=== PATIENT | female | born 1995 | race Caucasian/White ===

== ENCOUNTER 2017-02-04 19:46 | Emergency (ER) | payer OTHER ==
[~2017-02-04] VITALS: Ht 170.2 cm; Wt 62.8 kg
[~2017-02-04 19:46] MED LIST: AMOX125S2 PO; IBUP100S30 PO; NASAL SPRAY; PROM25TA5 PO; RANI50PED PO; Z.0.BCPILL PO; [UNRECOGNIZED DRUG - CODE]; [UNRECOGNIZED DRUG - CODE]; [UNRECOGNIZED DRUG - OTHER]
[2017-02-04 19:50] VITALS: BP 129/75; PULSE 77; RESP 18; TEMP 98.7; O2SAT 100
[2017-02-04 20:07] VITALS: BP 113/72; PULSE 90; RESP 15; TEMP 98.3; O2SAT 100
[2017-02-04] MEDS ORDERED: ZYRT10CA PO (20:18)
[2017-02-04] MEDS ORDERED: ETHI1TAB3 PO (20:18)
[2017-02-04] MEDS ORDERED: ZANT150T2 PO (20:18)
--- NOTE | 2017-02-04 20:46 | PD ---
HPI Chief Complaint: Chest Pain Time Seen by Provider: 20:30 Travel History International Travel<30 days: No Contact w/Intl Traveler<30days: No Traveled to known affect area: No History of Present Illness HPI This 21-year-old female is complaining of chest pain. She says that she's been having chest pain daily for some time. He says that in September she had a spell where her right arm went numb and she had trouble speaking. She went to an urgent care center and then followed up with a neurologist and was told that she had had a TIA. Since having a TIA having substernal chest pain every day. She says she generally gets at around 3:00 in the last symptoms she goes to bed. When she wakes up in the morning she was okay until about 3:00. The neurologist have referred her to a telephone directory deliverer and she is seeing Dr. Montague. She had a event monitor on for a few days but had no episodes on the monitor was on. The today as a first-aid monitors off and she started having pain around 10:00 and she says when she gets the pain she can't take a deep breath. She does not smoke. She has no history of hypertension or diabetes. There is a history of early strokes and some members of the family. She takes Zantac daily for indigestion. She is on control pills. Apparently the neurologist was not happy about that. She is continued to be on the control pills. she has been told to take aspirin but does admit that she has not been very compliant [facility] Past Medical History Cancer: No Cardiovascular Problems: No Cerebrovascular Accident: Yes (TIA september 2016 ) Diabetes: No Diminished Hearing: No Endocrine: No Gastrointestinal Disorders: Yes (GI ISSUES (UNKNOWN ETIOLOGY)) GERD: Yes Genitourinary: No Hepatitis: No Hiatal Hernia: No Immune Disorder: No Musculoskeletal: Yes (SCOLIOSIS) Neurologic: No Psychiatric: No Reproductive: No Respiratory: No Thyroid Disease: No Tetanus Vaccination: Unknown Influenza Vaccination: No ?: Not LMP: does not have periods Past Surgical History Abdominal Surgery: Yes (LAP. EUN) AICD: No Cholecystectomy: Yes Joint Replacement: No Oral Surgery: Yes (WISDOM TEETH EXTRACT/ GUM GRAFT) Pacemaker: No Other Surgery: Yes (JAW) Social History Alcohol Use: No Tobacco Use: No Substance Use: No Allergies-Medications (Allergen,Severity, Reaction): Coded Allergies: Sulfa (Verified Allergy, Mild, Rash, 02/04/17) Reported Meds & Prescriptions Reported Meds & Active Scripts Active Reported Zyrtec Allergy (Cetirizine HCl) 10 Mg Cap 10 Mg PO DAILY Zantac (Ranitidine HCl) 150 Mg Tab 150 Mg PO BID Do (Drospirenone-Ethinyl Estradiol) 3-0.02 Mg Tab 1 Tab PO DAILY Review of Systems General / Constitutional: No: Fever, Chills Eyes: No: Diploplia, Blurred Vision HENT: No: Headaches, Vertigo Cardiovascular: Positive: Chest Pain or Discomfort, No: Palpitations Respiratory: Positive: Shortness of Breath Gastrointestinal: No: Nausea, Vomiting Genitourinary: No: Urgency, Frequency Musculoskeletal: No: Myalgias, Arthralgias Skin: No Rash Physical Exam Narrative GENERAL: Well-developed female SKIN: Focused skin assessment warm/dry. HEAD: Atraumatic. Normocephalic. EYES: Pupils equal and round. No scleral icterus. No injection or drainage. ENT: No nasal bleeding or discharge. Mucous membranes pink and moist. NECK: Trachea midline. No JVD. CARDIOVASCULAR: Regular rate and rhythm. No murmur appreciated. RESPIRATORY: No accessory muscle use. Clear to auscultation. Breath sounds equal bilaterally. GASTROINTESTINAL: Abdomen soft, non-tender, nondistended. Hepatic and splenic margins not palpable. MUSCULOSKELETAL: No obvious deformities. No clubbing. No cyanosis. No edema. NEUROLOGICAL: Awake and alert. No obvious cranial nerve deficits. Motor grossly within normal limits. Normal speech. PSYCHIATRIC: Appropriate mood and affect; insight and judgment normal. Data Data Last Documented VS Vital Signs Date Time Temp Pulse Resp B/P Pulse Ox O2 Delivery O2 Flow Rate FiO2 02/04/17 20:11 100 Room Air 02/04/17 20:07 98.3 90 15 113/72 Orders Electrocardiogram (02/04/17 20:40) Complete Blood Count With Diff (02/04/17 20:40) Basic Metabolic Panel (Bmp) (02/04/17 20:40) Troponin I (02/04/17 20:40) Labs Laboratory Tests Test 02/04/17 20:20 White Blood Count 7.6 TH/MM3 Red Blood Count 4.24 MIL/MM3 Hemoglobin 11.7 GM/DL Hematocrit 36.5 % Mean Corpuscular Volume 86.2 FL Mean Corpuscular Hemoglobin 27.6 PG Mean Corpuscular Hemoglobin 32.0 % Concent Red Cell Distribution Width 11.8 % Platelet Count 198 TH/MM3 Mean Platelet Volume 9.6 FL Neutrophils (%) (Auto) 54.6 % Lymphocytes (%) (Auto) 36.4 % Monocytes (%) (Auto) 6.5 % Eosinophils (%) (Auto) 2.2 % Basophils (%) (Auto) 0.3 % Neutrophils # (Auto) 4.1 TH/MM3 Lymphocytes # (Auto) 2.8 TH/MM3 Monocytes # (Auto) 0.5 TH/MM3 Eosinophils # (Auto) 0.2 TH/MM3 Basophils # (Auto) 0.0 TH/MM3 CBC Comment DIFF FINAL Differential Comment Sodium Level 140 MEQ/L Potassium Level 3.6 MEQ/L Chloride Level 104 MEQ/L Carbon Dioxide Level 25.0 MEQ/L Anion Gap 11 MEQ/L Blood Urea Nitrogen 10 MG/DL Creatinine 0.78 MG/DL Estimat Glomerular Filtration 93 ML/MIN Rate Random Glucose 87 MG/DL Calcium Level 8.7 MG/DL Troponin I LESS THAN 0.02 NG/ML MDM Medical Decision Making Medical Screen Exam Complete: Yes Emergency Medical Condition: Yes Medical Record Reviewed: Yes Differential Diagnosis Differential includes atypical chest pain, coronary artery disease, gerd Narrative Course EKG shows normal sinus rhythm. Troponin is normal.This lady's pain is not suggestive of coronary artery disease daily. She is seeing Dr. Montagueon is stable for discharge she is to follow-up with Dr. Montague Diagnosis Primary Impression: Chest pain, atypical Referrals: Avila Montague MD Disposition: 01 DISCHARGE HOME Condition: Stable Ken Angela MD February 04, 2017 20:46
[2017-02-04 20:53] LABS: AUTOMATED NEUTROPHIL # 4.1 TH/MM3 (1.8-7.7); BASOPHIL % 0.3 % (0.0-2.0); EOSINOPHIL # 0.2 TH/MM3 (0-0.4); EOSINOPHIL % 2.2 % (0.0-4.0); HEMATOCRIT 36.5 % (35.0-46.0); HEMO FLAGS DIFF FINAL; LYMPH % 36.4 % (9.0-44.0); LYMPHOCYTE # 2.8 TH/MM3 (1.0-4.8); MEAN CELL VOLUME 86.2 FL (80.0-100.0); MEAN CORPUSCULAR HEMOGLOBIN 27.6 PG (27.0-34.0); MONO % 6.5 % (0.0-8.0); NEUT % 54.6 % (16.0-70.0); PLATELET COUNT 198 TH/MM3 (150-450); RED BLOOD COUNT 4.24 MIL/MM3 (4.00-5.30); RED CELL DISTRIBUTION WIDTH 11.8 % (11.6-17.2); WHITE BLOOD COUNT 7.6 TH/MM3 (4.0-11.0)
[2017-02-04 21:01] LABS: CHLORIDE 104 MEQ/L (98-107); POTASSIUM 3.6 MEQ/L (3.5-5.1); SODIUM (NA) 140 MEQ/L (136-145)
[2017-02-04 21:04] LABS: ANION GAP 11 MEQ/L (5-15)
[2017-02-04 21:05] LABS: BLOOD UREA NITROGEN 10 MG/DL (7-18)
[2017-02-04 21:08] LABS: GLOMERULAR FILTRATION RATE 93 ML/MIN (>89)
[2017-02-04 22:13] VITALS: BP 111/64
--- NOTE | 2017-02-05 15:38 | EKG ---
Date Performed: 02/04/2017 Time Performed: 20:13:10 PTAGE: 21 years EKG: Sinus rhythm . Compared to prior tracing no significant change Normal ECG PREVIOUS TRACING : 12/06/2013 14.04 DOCTOR: Gloria Rhoades Interpretating Date/Time 02/05/2017 15:35:32
== END 2017-02-04 22:30 | disposition home or self-care (01) ==
LOC: PHED 19:46
DX: R07.89 Other chest pain (principal)
CPT/HCPCS: 80048; 84484; 85025; 93005

== ENCOUNTER 2017-02-22 10:31 | Emergency (ER) | payer OTHER ==
[~2017-02-22] VITALS: Ht 170.2 cm; Wt 63.5 kg
[~2017-02-22 10:31] MED LIST changes: -AMOX125S2 PO; +ETHI1TAB3 PO; -IBUP100S30 PO; -NASAL SPRAY; -PROM25TA5 PO; -RANI50PED PO; -Z.0.BCPILL PO; +ZANT150T2 PO; +ZYRT10CA PO; -[UNRECOGNIZED DRUG - CODE]; -[UNRECOGNIZED DRUG - CODE]; -[UNRECOGNIZED DRUG - OTHER]
[2017-02-22 10:33] VITALS: BP 143/60; PULSE 95; RESP 20; TEMP 98.6; O2SAT 100
[2017-02-22 10:56] VITALS: RESP 16; O2SAT 100
[2017-02-22] MEDS ORDERED: SODIUM CHLORIDE 0.9% FLUSH 10 ML FLUSH IVF PRN (11:00)
--- NOTE | 2017-02-22 11:01 | PD ---
HPI Chief Complaint: GI Complaint Time Seen by Provider: 10:55 Travel History International Travel<30 days: No Contact w/Intl Traveler<30days: No Traveled to known affect area: No History of Present Illness HPI This is a 21-year-old female with a history of irritable bowel symptoms, who presents today with complaints of blood from rectum. Patient states she had a bowel movement this morning and when she went to [facility] perception noted bright red blood. She states that when she looked in the toilet, she noted dripping of blood from her rectum. She reports there was no bloody in her stool. She has no external hemorrhoids. She has no rectal pain. She has no abdominal pain. She has had 3 colonoscopies for her irritable bowel to rule out inflammatory bowel disease and reports they have found nothing at this point. PFSH Past Medical History Cancer: No Cardiovascular Problems: No Cerebrovascular Accident: Yes (TIA september 2016 ) Diabetes: No Diminished Hearing: No Endocrine: No Gastrointestinal Disorders: Yes (GI ISSUES (UNKNOWN ETIOLOGY)) GERD: Yes Genitourinary: No Hepatitis: No Hiatal Hernia: No Immune Disorder: No Musculoskeletal: Yes (SCOLIOSIS) Neurologic: No Psychiatric: No Reproductive: No Respiratory: No Thyroid Disease: No Tetanus Vaccination: > 5 Years Influenza Vaccination: No ?: Not LMP: NONE : 0 Past Surgical History Abdominal Surgery: Yes (LAP. EUN) AICD: No Cholecystectomy: Yes Joint Replacement: No Oral Surgery: Yes (WISDOM TEETH EXTRACT/ GUM GRAFT) Pacemaker: No Other Surgery: Yes (JAW) Social History Alcohol Use: No Tobacco Use: No Substance Use: No Allergies-Medications (Allergen,Severity, Reaction): Coded Allergies: Sulfa (Verified Allergy, Mild, Rash, 02/22/17) Reported Meds & Prescriptions Reported Meds & Active Scripts Active No Active Prescriptions or Reported Medications Review of Systems Except as stated in HPI: all other systems reviewed are Neg General / Constitutional: No: Fever HENT: Positive: Lightheadedness, No: Headaches, Vertigo Cardiovascular: No: Chest Pain or Discomfort, Palpitations, Irregular Rhythm Respiratory: No: Cough, Shortness of Breath Gastrointestinal: Positive: Other, No: Nausea, Diarrhea, Abdominal Pain ( bright red blood from rectum) Genitourinary: No: Dysuria, Nocturia Musculoskeletal: No: Myalgias, Weakness, Pain Neurologic: Positive: Dizziness, No: Weakness, Headache Physical Exam Narrative GENERAL: Well-nourished, well-developed patient. SKIN: Focused skin assessment warm/dry. HEAD: Normocephalic/atraumatic. EYES: No scleral icterus. No injection or drainage. NECK: Supple, trachea midline. CARDIOVASCULAR: Regular rate and rhythm without murmurs, gallops, or rubs. RESPIRATORY: Breath sounds equal bilaterally. No accessory muscle use. GASTROINTESTINAL: Abdomen soft, non-tender, nondistended. RECTAL EXAM: In the presence of the nurse, no external hemorrhoids present. On digital rectal examination there was a palpable fullness in her 6:00 portion of her rectum. There was trace blood and tested heme positive. No diffuse bleeding appreciated. No tenderness or fissure appreciated. MUSCULOSKELETAL: No cyanosis, or edema. NEUROLOGICAL: Awake and alert. Cranial nerves II through XII intact. Motor grossly within normal limits. Five out of 5 muscle strength in all muscle groups. Normal speech. Data Data Last Documented VS Vital Signs Date Time Temp Pulse Resp B/P Pulse Ox O2 Delivery O2 Flow Rate FiO2 02/22/17 10:56 16 100 Room Air 02/22/17 10:33 98.6 95 143/60 Orders Complete Blood Count With Diff (02/22/17 10:55) Comprehensive Metabolic Panel (02/22/17 10:55) Prothrombin Time / Inr (Pt) (02/22/17 10:55) Act Partial Throm Time (Ptt) (02/22/17 10:55) Ecg Monitoring (02/22/17 10:55) Iv Access Insert/Monitor (02/22/17 10:55) Oximetry (02/22/17 10:55) Sodium Chloride 0.9% Flush (Ns Flush) (02/22/17 11:00) Labs Laboratory Tests Test 02/22/17 11:00 White Blood Count 6.8 TH/MM3 Red Blood Count 4.29 MIL/MM3 Hemoglobin 12.4 GM/DL Hematocrit 36.4 % Mean Corpuscular Volume 85.0 FL Mean Corpuscular Hemoglobin 28.9 PG Mean Corpuscular Hemoglobin 34.0 % Concent Red Cell Distribution Width 12.7 % Platelet Count 212 TH/MM3 Mean Platelet Volume 9.9 FL Neutrophils (%) (Auto) 75.0 % Lymphocytes (%) (Auto) 19.8 % Monocytes (%) (Auto) 4.0 % Eosinophils (%) (Auto) 0.8 % Basophils (%) (Auto) 0.4 % Neutrophils # (Auto) 5.1 TH/MM3 Lymphocytes # (Auto) 1.3 TH/MM3 Monocytes # (Auto) 0.3 TH/MM3 Eosinophils # (Auto) 0.1 TH/MM3 Basophils # (Auto) 0.0 TH/MM3 CBC Comment DIFF FINAL Differential Comment Prothrombin Time 9.9 SEC Prothromb Time International 0.9 RATIO Ratio Activated Partial 25.7 SEC Thromboplast Time Sodium Level 138 MEQ/L Potassium Level 4.0 MEQ/L Chloride Level 106 MEQ/L Carbon Dioxide Level 27.0 MEQ/L Anion Gap 5 MEQ/L Blood Urea Nitrogen 11 MG/DL Creatinine 0.78 MG/DL Estimat Glomerular Filtration 93 ML/MIN Rate Random Glucose 102 MG/DL Calcium Level 8.8 MG/DL Total Bilirubin 0.2 MG/DL Aspartate Amino Transf 12 U/L (AST/SGOT) Alanine Aminotransferase 17 U/L (ALT/SGPT) Alkaline Phosphatase 68 U/L Total Protein 7.6 GM/DL Albumin 3.2 GM/DL [facility] Medical Decision Making Medical Screen Exam Complete: Yes Emergency Medical Condition: Yes Differential Diagnosis Lower GI bleed versus internal hemorrhoid versus inflammatory bowel disease Narrative Course 21-year-old female with history of irritable bowel syndrome, presents today with complaints of blood per rectum. The patient had normal stool with no blood in it. She currently has no rectal bleeding. Her H&H is stable. Her coags are normal. On digital rectal examination I felt that I palpated a small internal hemorrhoid at the 6 o'clock position. This is likely the culprit. The patient was not bleeding on my examination. She'll be discharged and told not to strain over bowel movements. She is instructed to increase her fiber rich diet but also drink plenty of fluids. She'll also be instructed to follow up with a GI physician. She is instructed to return if she does any worsening bleeding, shortness breath, dizziness or any other concern. Diagnosis Primary Impression: rectal bleeding, suspect internal hemorrhoidal etiology Additional Impression: stable normal blood count Additional Instructions: Do not strain over bowel movements. Increase fiber in your diet and drink plenty of fluids. Scripts No Active Prescriptions or Reported Meds Disposition: 01 DISCHARGE HOME Condition: Stable Pepito De MD February 22, 2017 11:01
[2017-02-22 11:09] LABS: AUTOMATED NEUTROPHIL # 5.1 TH/MM3 (1.8-7.7); BASOPHIL % 0.4 % (0.0-2.0); EOSINOPHIL # 0.1 TH/MM3 (0-0.4); EOSINOPHIL % 0.8 % (0.0-4.0); HEMATOCRIT 36.4 % (35.0-46.0); HEMO FLAGS DIFF FINAL; LYMPH % 19.8 % (9.0-44.0); LYMPHOCYTE # 1.3 TH/MM3 (1.0-4.8); MEAN CORPUSCULAR HEMOGLOBIN 28.9 PG (27.0-34.0); PLATELET COUNT 212 TH/MM3 (150-450); RED BLOOD COUNT 4.29 MIL/MM3 (4.00-5.30); RED CELL DISTRIBUTION WIDTH 12.7 % (11.6-17.2); WHITE BLOOD COUNT 6.8 TH/MM3 (4.0-11.0)
[2017-02-22 11:28] LABS: ALT (GPT) 17 U/L (10-53); ANION GAP 5 MEQ/L (5-15); AST (GOT) 12 U/L (15-37); BLOOD UREA NITROGEN 11 MG/DL (7-18); CHLORIDE 106 MEQ/L (98-107); GLOMERULAR FILTRATION RATE 93 ML/MIN (>89); SODIUM (NA) 138 MEQ/L (136-145)
[2017-02-22 11:30] LABS: ALKALINE PHOSPHATASE 68 U/L (45-117); TOTAL BILIRUBIN ADULT 0.2 MG/DL (0.2-1.0)
[2017-02-22 11:32] LABS: APTT (PATIENT) 25.7 SEC (24.3-30.1); INTERNATIONAL NORMALIZED RATIO 0.9 RATIO; PROTHROMBIN TIME - PATIENT 9.9 SEC (9.8-11.6)
[2017-02-22 13:35] VITALS: BP 122/76; TEMP 97.8
== END 2017-02-22 13:35 | disposition home or self-care (01) ==
LOC: NEPC 10:31
DX: K62.5 Hemorrhage of anus and rectum (principal)
CPT/HCPCS: 80053; 85025; 85610; 85730; 99283